=== PATIENT | female | born 1960 | race American Indian/Alaskan Native ===

== ENCOUNTER 2016-11-18 13:50 | Observation (INO) | payer MEDICARE, OTHER ==
[2016-11-18 14:18] VITALS: O2SAT 100; BMI 20.2
--- NOTE | 2016-11-18 15:02 | ED PDOC ---
Arrival/HPI <Lorenzo Lott - Last Filed: 11/18/16 16:46> - General Historian: Patient - History of Present Illness Time/Duration: < week Symptom Onset: Gradual Symptom Course: Unchanged Quality: Burning Severity Level: 4 Activities at Onset: Rest Context: Home <Kateryna Vargas - Last Filed: 11/18/16 20:44> - General Chief Complaint: High Blood Pressure Time Seen by Provider: 11/18/16 14:21 - History of Present Illness Narrative History of Present Illness (Text): 11/18/16 14:58 This is a 56Y deaf F with PMH of HTN, HLD, CKD, anemia, CVA who came to ED for high blood pressure. She was sent in by PMD for SBP of 230s. Daughter is at bedside translating for mother. The daughter reports that her mother ran out of all her medications for the past 2 days. They applied for Medicaid and waiting for acceptance. As of now, her mother and father are living off of a disability check that does not come in until December 01. The daughter also helps her parents when she can. The patient reports she is having epigastric abdominal pain that radiates up and down her sternum and to her back. The pain is worse with food. Patient does take Protonix at home, but ran out of her medication. She denies CP , SOB, n/v/d, numbness/tingling, dysuria or hematuria. Of note, patient had an EGD 05/2016 and a nuclear stress test which was normal. (Kateryna Vargas) Past Medical History - Provider Review Nursing Documentation Reviewed: Yes - Cardiac Hx Hypertension: Yes - Neurological HX Cerebrovascular Accident: Yes (5 yrs ago.. no deficit) - HEENT Hx Deafness: Yes Other/Comment: mute.... also has blurry vision lately - Endocrine/Metabolic Hx Endocrine Disorders: No - Hematological/Oncological Hx Blood Transfusions: Yes Hx Blood Transfusion Reaction: (UNK) - Integumentary Hx Dermatological Disorder: No - Musculoskeletal/Rheumatological Hx Musculoskeletal Disorders: No - Gastrointestinal Hx Gastrointestinal Disorders: No - Genitourinary/Gynecological Hx Genitourinary Disorders: No - Psychiatric Hx Psychophysiologic Disorder: No Hx Substance Use: No - Surgical History Hx Hysterectomy: Yes (after 2nd child was born) - Anesthesia Hx Anesthesia Reactions: No Hx Malignant Hyperthermia: No <Kateryna Vargas - Last Filed: 11/18/16 20:44> Family/Social History - Physician Review Nursing Documentation Reviewed: Yes Family/Social History: Hypertension Smoking Status: Never Smoked Hx Alcohol Use: Yes (social 2-3/year) Hx Substance Use: No <Kateryna Vargas - Last Filed: 11/18/16 20:44> Allergies/Home Meds <Lorenzo Lott - Last Filed: 11/18/16 16:46> <Kateryna Vargas - Last Filed: 11/18/16 20:44> Allergies/Adverse Reactions: Allergies No Known Allergies Allergy (Verified 06/09/16 07:39) Home Medications: Home Meds Medication Instructions Recorded Confirmed Furosemide [Lasix] 40 mg PO DAILY 06/09/16 06/09/16 NIFEdipine ER [Procardia XL] 90 mg PO DAILY 06/09/16 06/09/16 Atorvastatin [Lipitor] 40 mg PO DAILY 11/18/16 11/18/16 Metoprolol Tartrate [Lopressor] 50 mg PO BID 11/18/16 11/18/16 Pantoprazole Sodium [Protonix] 40 mg PO DAILY 11/18/16 11/18/16 Review of Systems - Physician Review All systems were reviewed & negative as marked: Yes - Review of Systems Constitutional: Normal. absent: Fatigue, Fevers Eyes: Normal. absent: Vision Changes ENT: Normal. absent: Hearing Changes Respiratory: Normal. absent: SOB, Cough Cardiovascular: Normal. absent: Chest Pain, Palpitations Gastrointestinal: Abdominal Pain. absent: Diarrhea, Nausea, Vomiting Genitourinary Female: Normal Musculoskeletal: Normal. absent: Arthralgias Skin: Normal Neurological: Normal. absent: Headache, Dizziness Endocrine: Normal Hemo/Lymphatic: Normal Psychiatric: Normal. absent: Anxiety, Depression <Kateryna Vargas - Last Filed: 11/18/16 20:44> Physical Exam <KaylieLorenzo - Last Filed: 11/18/16 16:46> Vital Signs Reviewed: Yes Temperature: Afebrile Blood Pressure: Hypertensive Pulse: Tachycardic Respiratory Rate: Normal Appearance: Positive for: Well-Appearing, Non-Toxic, Comfortable Pain Distress: None Mental Status: Positive for: Alert and Oriented X 3 - Systems Exam Head: Present: Atraumatic, Normocephalic Pupils: Present: PERRL Extroacular Muscles: Present: EOMI Conjunctiva: Present: Normal Mouth: Present: Moist Mucous Membranes Neck: Present: Normal Range of Motion Respiratory/Chest: Present: Clear to Auscultation, Good Air Exchange. No: Respiratory Distress, Accessory Muscle Use Cardiovascular: Present: Regular Rate and Rhythm, Normal S1, S2. No: Murmurs Abdomen: Present: Tenderness (epigastric ), Normal Bowel Sounds. No: Distention , Peritoneal Signs Back: Present: Normal Inspection Upper Extremity: Present: Normal Inspection. No: Cyanosis, Edema Lower Extremity: Present: Normal Inspection. No: Edema Neurological: Present: GCS=15, CN II-XII Intact, Speech Normal Skin: Present: Warm, Dry, Normal Color. No: Rashes Psychiatric: Present: Alert, Oriented x 3, Normal Insight, Normal Concentration <Kateryna Vargas - Last Filed: 11/18/16 20:44> Vital Signs Temp Pulse Resp BP Pulse Ox 11/18/16 19:21 87 22 192/74 H 100 11/18/16 19:08 83 196/124 H 11/18/16 19:04 85 20 196/124 H 100 11/18/16 18:49 79 20 189/98 H 100 11/18/16 16:17 69 254/141 H 11/18/16 15:45 70 20 254/141 H 100 11/18/16 15:07 87 258/145 H 11/18/16 15:06 158/145 H 11/18/16 14:06 98.6 F 97 H 20 192/157 H 100 Medical Decision Making <Lorenzo Lott - Last Filed: 11/18/16 16:46> Re-evaluation Time: 15:59 Reassessment Condition: Unchanged - Lab Interpretations I have reviewed the lab results: Yes Interpretation: No sign. chg./baseline - RAD Interpretation Clinical Nursing Instructor: Radiologist - EKG Interpretation Interpreted by ED Physician: Yes Type: 12 lead EKG Comparison: Com.w/previous EKG <Kateryna Vargas - Last Filed: 11/18/16 20:44> ED Course and Treatment: A 56 year old female with high blood pressure. In agreement with resident note, which includes further HPI details. Patient was seen and evaluated with resident , along with a tattoo designer, came up with plan and treatment together. 11/18/16 16:08 Oral medication, Lopressor and Norvasc, given at patient's dosing schedule. Patients blood pressure continues to be high, currently 254/141. Will need intravenous antihypertensive medication for blood pressure control. Will need observation on tele. Discussed with Dr. Edouard for placement on his service. 11/18/16 16:46 Patient given hydralazine ivp with BP down to 210/127; patient's daughter says that despite scripts besides the lopressor and amlodipine for HTN, they were unable to afford the meds and that is all she takes. At this time, she does c/ o abd, cp, and back pain that are chronic and had a negative stress test 6 months ago. EKG shows chronic strain pattern. Trop is indeterminate but trending down. Will need to r/o dissection; given renal function, will need MRA. (Lorenzo Lott) 11/18/16 15:55 Impression: This is a 56Y deaf F with PMH of HTN, HLD, CKD, anemia, CVA who came to ED for high blood pressure and epigastric abdominal pain x 2 days. She was sent in by PMD for SBP of 230s. Patient reports she ran out of her medication and cannot afford it for past 2 days. She will get a disability check in 2 weeks. DDX: GERD, medication non-compliance Plan: -- CBC, CMP, U/A, Urine culture -- EKG, CXR -- Protonix IV, Lopressor, Norvasc. -- Consult with social science analyst for payment issues -- Reassess Prior Visits: Notes and results from previous visits were reviewed. Progress Note: Patient continues to have abdominal pain. Protonix 40mg IV ordered. Labs noted to be at baseline. Patient noted to have continued HTN. Hydralazine ordered. MRA of chest ordered to rule out dissection. Patient being admitted for high BP. Spoke with Dr. Edouard who will accept the patient into his service. (Kateryna Vargas) - Lab Interpretations Lab Results: 11/18/16 14:49 11/18/16 14:49 Lab Results 11/18/16 14:49: Iron 48, TIBC 282, % Saturation 17 L, 25-OH Vitamin D Total Pending 11/18/16 14:49: Phosphorus 3.7, Ferritin Pending, Vitamin B12 Pending, Folate Pending 11/18/16 14:49: Sodium 138, Potassium 4.3, Chloride 101, Carbon Dioxide 28, Anion Gap 13, BUN 38 H, Creatinine 2.8 H, Est GFR ( Amer) 21, Est GFR ( Non-Af Amer) 17, Random Glucose 86, Calcium 9.2, Total Bilirubin 0.5, AST 28, ALT 26, Alkaline Phosphatase 85, Lactate Dehydrogenase 577, Total Creatine Kinase 76, Troponin I 0.05 D, Total Protein 8.4 H, Albumin 4.2, Globulin 4.2, Albumin/Globulin Ratio 1.0 L 11/18/16 14:49: Urine Color Yellow, Urine Appearance Clear, Urine pH 7.0, Ur Specific [place] 1.010, Urine Protein 100 H, Urine Glucose (UA) Negative, Urine Ketones Negative, Urine Blood Small H, Urine Nitrate Negative, Urine Bilirubin Negative, Urine Urobilinogen 0.2, Ur Leukocyte Esterase Negative, Urine RBC 0 - 2, Urine WBC 0 - 2, Ur Epithelial Cells 1 - 3, Urine Bacteria Few 11/18/16 14:49: WBC 7.2, RBC 3.78, Hgb 10.7 L, Hct 32.5 L, MCV 86.0, MCH 28.3, MCHC 32.9, RDW 13.5, Plt Count 293, MPV 9.7, Gran % 73.1 H, Lymph % (Auto) 19.9 L, [place] % (Auto) 6.1 H, Eos % (Auto) 0.8 L, Baso % (Auto) 0.1, Gran # 5.25, Lymph # 1.4, Donley # 0.4, Eos # 0.1, Baso # 0.01 - RAD Interpretation Narrative RAD Interpretations (Text): 11/18/16 17:32 CXR Portable COMPARISON: 06/09/2016 FINDINGS: LUNGS: The lungs are well inflated and clear. PLEURA: No significant pleural effusion identified, no pneumothorax apparent. CARDIOVASCULAR: There is persistent severe cardiomegaly. OSSEOUS STRUCTURES: No significant abnormalities. VISUALIZED UPPER ABDOMEN: Normal. OTHER FINDINGS: None. IMPRESSION: No active pulmonary disease. Severe cardiomegaly. 11/18/16 20:43 EXAM: MR Chest Without Intravenous Contrast CLINICAL HISTORY: 56 years old, female; Pain; Chest pain; Type not specified; Patient HX: Chest pain. R/O aortic dissection. Bad kidney function. ; Additional info: R/O dissection COMPARISON: TMT - MYOCARDIAL STRESS REST SPECT 06/11/2016 11:14:55 AM FINDINGS: Limitation: Study is partially limited secondary to motion. The proximal pulmonary arteries are not well-seen. Small calcified nodule associated with the right major fissure. Lungs are overall clear. Mediastinum: Unremarkable. Thyroid appears prominent. Lungs: Unremarkable. No consolidation. Calcified nodule right major fissure. Cardiac chambers: The cardiac chambers are moderately enlarged without the presence of pericardial thickening or effusion. Pleural space: Unremarkable. No significant fluid collection. Bones/joints: There is no evidence of abnormal bone marrow signal intensity to suggest contusion or occult fracture. Upper abdomen: Small cyst of the right hepatic lobe.. Vasculature: The aortic contours not optimally delineated, and unable to assess for presence or absence of intimal flaps. Lymph nodes: Unremarkable. No enlarged lymph nodes. IMPRESSION: Unable to assess the presence or absence of dissection. Study is very limited. No aneurysm of the aorta. No acute process in the chest. Incidental findings as described (Kateryna Vargas) Radiology Orders: 11/18/16 14:38 CHEST PORTABLE [RAD] Stat - EKG Interpretation EKG Interpretation (Text): 11/18/16 15:59 HR at 84. QTc mildly prolonged at 467. No change from previous EKG. NSR. R atrial enlargement. LVH (Kateryna Vargas) - Medication Orders Current Medication Orders: Minoxidil (Minoxidil) 5 mg PO HS RAFI Last Admin: 11/18/16 20:11 Dose: 5 mg Discontinued Medications Amlodipine Besylate (Norvasc) 10 mg PO STAT STA Stop: 11/18/16 14:53 Last Admin: 11/18/16 15:06 Dose: 10 mg Hydralazine HCl (Apresoline) 10 mg IVP ONCE STA Stop: 11/18/16 16:11 Last Admin: 11/18/16 16:17 Dose: 10 mg Metoprolol Tartrate (Lopressor) 50 mg PO STAT STA Stop: 11/18/16 14:53 Last Admin: 11/18/16 15:07 Dose: 50 mg Metoprolol Tartrate (Lopressor) 100 mg PO STAT STA Stop: 11/18/16 18:52 Last Admin: 11/18/16 19:08 Dose: 100 mg Pantoprazole Sodium (Protonix Inj) 40 mg IVP STAT STA Stop: 11/18/16 14:54 Last Admin: 11/18/16 15:01 Dose: 40 mg Pantoprazole Sodium (Protonix Inj) 40 mg IVP STAT STA Stop: 11/18/16 15:52 Last Admin: 11/18/16 16:11 Dose: 40 mg - PA / CORRESPONDENCE RENEW CLERK / Resident Statement /DO has reviewed & agrees with the documentation as recorded. MD/DO has examined the patient and agrees with the treatment plan. - Scribe Statement The provider has reviewed the documentation as recorded by the Scribe <Lorenzo Lott - Last Filed: 11/18/16 16:46> <Kateryna Vargas - Last Filed: 11/18/16 20:44> - Scribe Statement Liliana Rubio Provider Scribe Attestation: All medical record entries made by the Scribe were at my direction and personally dictated by me. I have reviewed the chart and agree that the record accurately reflects my personal performance of the history, physical exam, medical decision making, and the department course for this patient. I have also personally directed, reviewed, and agree with the discharge instructions and disposition. (Lorenzo Lott) Disposition/Present on Arrival <Lorenzo Lott - Last Filed: 11/18/16 16:46> - Present on Arrival Any Indicators Present on Arrival: No History of DVT/PE: No History of Uncontrolled Diabetes: No Urinary Catheter: No History of Decub. Ulcer: No History Surgical Site Infection Following: None - Disposition Have Diagnosis and Disposition been Completed?: Yes Disposition Time: 16:16 Patient Plan: Admission, Telemetry <Kateryna Vargas - Last Filed: 11/18/16 20:44> - Disposition Diagnosis: Hypertensive urgency, GERD (gastroesophageal reflux disease) Disposition: HOSPITALIZED Patient Problems: Current Active Problems Problem Status Onset Hypertensive urgency Acute GERD (gastroesophageal reflux disease) Acute Condition: FAIR
[2016-11-18 15:03] LABS: ADD MANUAL DIFF? NO
[2016-11-18 15:08] LABS: URINE BILIRUBIN NEGATIVE (NEGATIVE); URINE BLOOD SMALL (NEGATIVE); URINE GLUCOSE (UA) NEGATIVE (NEGATIVE); URINE KETONE NEGATIVE (NEGATIVE); URINE LEUKOCYTE ESTERASE NEGATIVE Leu/uL (NEGATIVE); URINE PROTEIN 100 mg/dL (<30 mg/dL); URINE UROBILINOGEN 0.2 E.U./dL (<1 E.U./dL)
[2016-11-18 15:09] LABS: URINE COLOR YELLOW (YELLOW)
[2016-11-18 15:10] LABS: URINE APPEARANCE CLEAR (CLEAR)
[2016-11-18 15:11] LABS: BASO # 0.01 K/mm3 (0.0-2.0); BASO % 0.1 % (0.0-3.0); EOS # 0.1 (0.0-0.7); EOS % 0.8 % (1.5-5.0); GRAN # 5.25 (1.4-6.5); GRAN % 73.1 % (50.0-68.0); HEMATOCRIT 32.5 % (36.0-48.0); LYMPH # 1.4 (1.2-3.4); LYMPH % 19.9 % (22.0-35.0); MEAN CORPUSCULAR HEMOGLOBIN 28.3 pg (25.0-35.0); MEAN CORPUSCULAR HGB CONC 32.9 g/dl (31.0-37.0); MEAN PLATELET VOLUME 9.7 fl (7.0-11.0); MONO # 0.4 (0.1-0.6); MONO % 6.1 % (1.0-6.0); PLATELET COUNT 293 10^3/uL (120.0-450.0); RED CELL DISTRIBUTION WIDTH 13.5 % (11.5-14.5); WHITE BLOOD COUNT 7.2 10^3/ul (4.5-11.0)
[2016-11-18 15:18] LABS: BILIRUBIN,TOTAL 0.5 mg/dL (0.2-1.3); CALCIUM 9.2 mg/dL (8.4-10.5); POTASSIUM 4.3 mmol/L (3.6-5.0); TOTAL PROTEIN 8.4 g/dL (5.8-8.3)
[2016-11-18 15:22] LABS: URINE BACTERIA FEW (NEG); URINE RBC 0 - 2 /hpf (0-2); URINE WBC 0 - 2 /hpf (0-6)
[2016-11-18 15:30] LABS: TROPONIN I 0.05 ng/mL
--- NOTE | 2016-11-18 16:33 | RAD ---
HISTORY: chest discomfort COMPARISON: 06/09/2016 FINDINGS: LUNGS: The lungs are well inflated and clear. PLEURA: No significant pleural effusion identified, no pneumothorax apparent. CARDIOVASCULAR: There is persistent severe cardiomegaly. OSSEOUS STRUCTURES: No significant abnormalities. VISUALIZED UPPER ABDOMEN: Normal. OTHER FINDINGS: None. IMPRESSION: No active pulmonary disease. Severe cardiomegaly.
--- NOTE | 2016-11-18 19:04 | CP.PCM.CON ---
History of Present Illness - History of Present Illness History of Present Illness: Initial Nephrology Consultation: Assessment: Chronic Kidney Disease Stage 4 with ? mg proteinuria likely due to HTN severe uncontrolled HTN with urgency Anemia, non compliance to meds due to social issues chronic sys CHF, pulmonary HTN visual impairment, deaf/mute status Plan No acute need for renal replacement therapy at this time. Hypertension control with meds as ordered. continue with norvasc 10 mg/day, ARB home dose and add minoxidil 5 mg/day. Monitor Input/Output, daily weights and renal function with basic metabolic panel Check urine analysis, spot protein/creatinine and albumin/creatinine ratio Check for 25-OH vitamin D, iPTH, phosphorus level and iron indices, serum protein electrophoresis with immunofixation, Dose meds/antibiotics for reduced GFR. Avoid fleets enema/magnesium based laxatives. Avoid nephrotoxins/NSAIDs/ iodinated contrast (unless needed emergently) Further work up for as per primary team Thanks for allowing me to participate in care of your patient. Will follow patient with you. Please call if any Qs Dr Cory Rausch Office: [phone] Chief Complaint; headache, elevated BP HPI: Pt is a 56 y/o with hx of long standing hypertension (decades), CKD stage 4 with echogenic kidneys, visually impaired, deaf and mute presented with complaints of elevated BP with headache for last few days. pt has not been able to afford BP meds and takes for few days/weeks in a month only. Denies chest pain, palpitation, shortness of breath, leg swelling Denies blood or bubbles in urine Denies OTC/herbal meds or NSAIDs ROS: Daughter bedside who helped in sign language interpretation Constitutional Symptoms: Denies fever. No chills. No Recent Weight Changes Eyes: has chronic vision impairment Ears/Nose/Mouth/Throat: Denies Abnormal Taste. No Bad breath or Bad Taste. Cardiovascular: No chest pain. There is no shortness of breath. No palpitations. Pulmonary: No shortness of breath or cough. Gastrointestinal: has mild abdominal pain No nausea. No vomiting. Denies change in bowel habits. Denies Bleeding Genitourinary: No Change in force of strain when urinating. No increase in urinary frequency. No pain while urinating. Denies blood in urine. Neurological: c/o headaches. No dizziness. Denies loss of balance. Denies weakness, denies tingling/numbness Dermatological: No Rash or Bruising or ulcers. Psychiatric: Denies Anxiety. No depression. Denies hallucinations. Rheumatological: No joint pain. Denies Joint swelling Endocrine: Denies over tiredness. Denies Fatigue and Heat/Cold Intolerance. Physical Examination: General Appearance: Comfortable, in no acute respiratory distress, co-operative . Vitals reviewed and noted as below. BP 189/98 when seen Head; Atraumatic, normocephalic ENT: no ulcers no thrush. Tongue is midline. Oropharynx: no rash or ulcers. EYES; Eye muscles and extraocular movement intact. Sclera is anicteric. Neck; supple no lymphadenopathy, no thyromegaly or bruit Lungs: Normal respiratory rate/effort. Breath sounds bilateral equal and clear Heart: Normal rate. s1s2 normal. No rub or gallop. Extremities: no edema. No varicose veins Neurological: Patient is alert, awake and oriented to person, place and time. No focal deficit. Strength bilateral appropriate and equal. she is deaf and mute. Skin: Warm and dry. Normal turgor. No rash. Palpitation: Normal elasticity for age Abdomen: Abdomen is soft. Bowel sounds +. There is no abdominal tenderness, no guarding/rigidity or organomegaly Psych: lack insight and has normal affect/mood MSK: no joint tenderness or swelling. Digits and nails normal, no deformity : kidney or bladder not palpable Labs/imaging reviewed. Past medical history, past surgical history, family history, social history, allergy reviewed and noted as below previusly ANCA neg complements normal, Hep c neg and exposed to hep B but sAg and sAb neg echogenic kidneys on sonogram echo: EF 45% with conc LVH, pulm HTN Past Patient History - Past Social History Smoking Status: Never Smoked - CARDIAC Hx Hypertension: Yes - NEUROLOGICAL HX Cerebrovascular Accident: Yes (5 yrs ago.. no deficit) - HEENT Hx Deafness: Yes Other/Comment: mute.... also has blurry vision lately - ENDOCRINE/METABOLIC Hx Endocrine Disorders: No - HEMATOLOGICAL/ONCOLOGICAL Hx Blood Transfusions: Yes Hx Blood Transfusion Reaction: (UNK) - INTEGUMENTARY Hx Dermatological Problems: No - MUSCULOSKELETAL/RHEUMATOLOGICAL Hx Musculoskeletal Disorders: No - GASTROINTESTINAL Hx Gastrointestinal Disorders: No - GENITOURINARY/GYNECOLOGICAL Hx Genitourinary Disorders: No - PSYCHIATRIC Hx Psychophysiologic Disorder: No Hx Substance Use: No - SURGICAL HISTORY Hx Hysterectomy: Yes (after 2nd child was born) - ANESTHESIA Hx Anesthesia Reactions: No Hx Malignant Hyperthermia: No Meds Allergies/Adverse Reactions: Allergies Allergy/AdvReac Type Severity Reaction Status Date / Time No Known Allergies Allergy Verified 06/09/16 07:39 Results - Vital Signs Recent Vital Signs: Last Vital Signs Temp 98.6 F 11/18/16 14:06 Pulse 69 11/18/16 16:17 Resp 20 11/18/16 15:45 BP 254/141 H 11/18/16 16:17 Pulse Ox 100 11/18/16 15:45 - Labs Result Diagrams: 11/18/16 14:49 11/18/16 14:49
[2016-11-18 19:36] LABS: PHOSPHOROUS 3.7 mg/dL (2.5-4.5)
[2016-11-18 19:45] LABS: IRON 48 ug/dL (45-180)
--- NOTE | 2016-11-18 22:08 | CARD ---
APPROVED REPORT EKG Measurement Heart [id number] <Conclusion> Normal sinus rhythm Right atrial enlargement Voltage criteria for left ventricular hypertrophy ST & T wave abnormality, consider inferolateral ischemia Prolonged QT Abnormal ECG
--- NOTE | 2016-11-19 08:00 | MRI ---
PROCEDURE: HISTORY: r/o dissection COMPARISON: TECHNIQUE: Noncontrast FINDINGS: The heart is enlarged. The pulmonary artery trunk appears dilated. There is no aortic aneurysm. Cannot rule out aortic dissection without benefit of intravenous contrast. The lungs are grossly clear. There is no effusion. No gross adenopathy is observed. There is no marrow signal abnormality. Mild thyroid enlargement is observed. The upper abdomen is unremarkable. IMPRESSION: No evidence of aortic aneurysm the dissection is not definitively excluded. Cardiomegaly. Dilated pulmonary artery trunk.
--- NOTE | 2016-11-19 09:06 | HP ---
I met her this morning with the gas engine performance engineer. She is deaf and possibly blind. She is a 56-year-old deaf female who comes in with excruciating high blood pressure and abdominal pain. She has a past medical history of hypertension, hyperlipidemia, chronic kidney disease, anemia, CVA with weakness in her legs. She had a blood pressure in the 230s. Her daughter brought her in and now there is a gas engine performance engineer with me in her room. They ran out of the medications for the past 2 days. They are awaiting acceptance from Medicaid, waiting for a disability check. She has abdominal pain, hypertension and chronic renal failure; CVA 5 years ago , no deficit; hypertension, occasional blurred vision, poor vision and deafness. She needs a gas engine performance engineer. She had transfusions in the past, hysterectomy after her second child was born. FAMILY HISTORY: Hypertension in the family. SOCIAL HISTORY: She never smoked. She occasionally drinks, 2-3 times a year. No substance abuse. ALLERGIES: No known drug allergies. MEDICATIONS: She is on Lasix, Procardia, Lipitor, Lopressor, Protonix. REVIEW OF SYSTEMS: No acute headaches or vision changes or hearing changes. No chest pain or palpitations. There is abdominal pain, not sure why. There is some leg pain. Skin: No issues. No headache, no dizziness. She is not anxious. No depression. She is smiling and comfortable. PHYSICAL EXAMINATION: VITAL SIGNS: She has a 192/74 blood pressure (it was as high as 254/141 when she came in), 87 pulse, 22 respiratory rate, 100% O2 sat. HEENT: Head is atraumatic, normocephalic. Extraocular muscles are intact. Pupils equal, reactive to light. Throat moist. NECK: Supple. HEART: Regular rate. Normal S1, S2. LUNGS: Decreased breath sounds but clear to auscultation. ABDOMEN: Is for the most part soft. There is a little bit of tenderness, but no guarding or rebound, no CVA tenderness. EXTREMITIES: Have no edema. NEUROLOGIC: GCS 15. Cranial nerves II-XII grossly intact. She is deaf. SKIN: Warm and dry. PSYCHIATRIC: She is alert and talking to the gas engine performance engineer in sign language. LYMPHATICS: Thyroid midline. No palpable appreciable lymphadenopathy. LABORATORY DATA: She had multiple tests. She had a 7.2 white count, 10.7 hemoglobin, 32.5 hematocrit with 293 platelets. Sodium 138, potassium 4.3, BUN , creatinine 2.8 (that could be her baseline, nobody knows), GFR is 17, sugar is 86, calcium is 9.2. Iron is 48, total iron binding capacity is 282. Total bili is 0.5, AST is 28, ALT is 26, alk phos 85. Lactate dehydrogenase is 577, troponin-I is 0.05. Total protein is 8.4, albumin is 4.2. Urine is clean. She had some tests done. Consult with renal. They ordered a renal ultrasound. Chest MRA showed no evidence of aortic aneurysm but dissection is not definitively excluded, dilated pulmonary trunk. Chest x-ray showed no active disease, severe cardiomegaly. So, severe cardiomegaly. There are consults for GI, cardio, renal. She is on hydralazine and Protonix. I am hoping that she can be discharged later today, if the workup is okay, and sent back to her outpatient physician. This patient had accelerated hypertension which is improved, acute renal failure which I think is chronic, abdominal pain. I am not sure what to make of that. Will see what GI has to say. Kaden Edouard DO cc: [id number] TT: 11/19/2016 09:05:31 gabriel SUT[place]LAND
--- NOTE | 2016-11-19 09:50 | CP.PCM.PN ---
Subjective - Date & Time of Evaluation Date of Evaluation: 11/19/16 Time of Evaluation: 09:46 - Subjective Subjective: Follow up Nephrology Consultation: Assessment: Chronic Kidney Disease Stage 4 with ? mg proteinuria likely due to HTN severe uncontrolled HTN with urgency Anemia, non compliance to meds due to social issues chronic sys CHF, pulmonary HTN visual impairment, deaf/mute status Plan No acute need for renal replacement therapy at this time. Hypertension control with meds as ordered. continue with norvasc 10 mg/day, add losartan 50 mg/day and added minoxidil 5 mg/day. Monitor Input/Output, daily weights and renal function with basic metabolic panel ordered for urine analysis, spot protein/creatinine and albumin/creatinine ratio ordered for 25-OH vitamin D, iPTH, phosphorus level and iron indices, serum protein electrophoresis with immunofixation, Hep B serology. Secondary HTN work up with renin/jasmin/metanephrine and renal artery dopplers Dose meds/antibiotics for reduced GFR. Avoid fleets enema/magnesium based laxatives. Avoid nephrotoxins/NSAIDs/ iodinated contrast (unless needed emergently) Further work up for as per primary team Thanks for allowing me to participate in care of your patient. Will follow patient with you. Please call if any Qs Dr Cory Rausch Office: [phone] ROS: Interpretor bedside who helped in sign language interpretation Constitutional Symptoms: Denies fever. No chills. No Recent Weight Changes Eyes: has chronic vision impairment Ears/Nose/Mouth/Throat: Denies Abnormal Taste. No Bad breath or Bad Taste. Cardiovascular: No chest pain. There is no shortness of breath. No palpitations. Pulmonary: No shortness of breath or cough. Gastrointestinal: has mild abdominal pain/cramps No nausea. No vomiting. Genitourinary: No Change in force of strain when urinating. No increase in urinary frequency. No pain while urinating. Denies blood in urine. Neurological: improved headaches. No dizziness. Physical Examination: General Appearance: Comfortable, in no acute respiratory distress, co-operative . Vitals reviewed and noted as below. Lungs: Normal respiratory rate/effort. Breath sounds bilateral equal and clear Heart: Normal rate. s1s2 normal. No rub or gallop. Extremities: no edema. No varicose veins Neurological: Patient is alert, awake and oriented to person, place and time. No focal deficit. Strength bilateral appropriate and equal. she is deaf and mute. Skin: Warm and dry. Normal turgor. No rash. Palpitation: Normal elasticity for age Abdomen: Abdomen is soft. Bowel sounds +. There is no abdominal tenderness, no guarding/rigidity or organomegaly : kidney or bladder not palpable Labs/imaging reviewed. Past medical history, past surgical history, family history, social history, allergy reviewed previously ANCA neg complements normal, Hep c neg and exposed to hep B but sAg and sAb neg echogenic kidneys on sonogram echo: EF 45% with conc LVH, pulm HTN Objective - Vital Signs/Intake and Output Vital Signs (last 24 hours): Temp Pulse Resp BP Pulse Ox 98.2 F 84 18 125/71 100 11/19/16 06:00 11/19/16 06:00 11/19/16 06:00 11/19/16 06:00 11/19/16 06:00 Intake and Output: 11/19/16 11/19/16 06:59 18:59 Intake Total 120 Balance 120 - Medications Medications: Current Medications Amlodipine Besylate (Norvasc) 10 mg PO DAILY [facility] Pantoprazole Sodium (Protonix 40mg Ivpb) 40 mg in 100 mls @ 200 mls/hr IVPB 0600 [facility] Losartan Potassium (Cozaar) 50 mg PO DAILY [facility] Minoxidil (Minoxidil) 5 mg PO [facility] Last Admin: 11/18/16 23:54 Dose: 5 mg
[2016-11-19 10:38] LABS: ADD MANUAL DIFF? NO
[2016-11-19 10:44] LABS: BASO # 0.02 K/mm3 (0.0-2.0); BASO % 0.3 % (0.0-3.0); EOS # 0.1 (0.0-0.7); EOS % 0.8 % (1.5-5.0); GRAN # 3.91 (1.4-6.5); GRAN % 65.6 % (50.0-68.0); LYMPH # 1.6 (1.2-3.4); LYMPH % 27.3 % (22.0-35.0); MEAN CELL VOLUME 86.4 fL (80.0-105.0); MEAN CORPUSCULAR HGB CONC 32.4 g/dl (31.0-37.0); MEAN PLATELET VOLUME 9.5 fl (7.0-11.0); MONO # 0.4 (0.1-0.6); PLATELET COUNT 365 10^3/uL (120.0-450.0); RED CELL DISTRIBUTION WIDTH 13.7 % (11.5-14.5)
[2016-11-19 10:55] LABS: POTASSIUM 4.3 mmol/L (3.6-5.0)
[2016-11-19 12:49] VITALS: BP 110/68; RESP 20; TEMP 98.5
--- NOTE | 2016-11-19 12:52 | CP.PCM.CON ---
<Kyaw Cosme - Last Filed: 11/19/16 12:52> History of Present Illness - History of Present Illness History of Present Illness: PGY4 GI Fellow Consult Note Patient is a 56yo female with PMHx significant for CKD stage 4, HTN, CVA, anemia , CHF, pulmonary HTN, visually impaired, deaf who presented to the hospital with abdominal pain. A print designer was present during history/ examination as well as the patient's daughter and . The patient has suffered with constant, epigastric, burning pain for approximately 2 years. She was recently seen and evaluated by our service in May 2016 where she underwent EGD revealing H pylori gastrits. She has been on Protonix 40mg PO QAMAC though compliance has been tricky due to social issues related to obtaining medications. Moreover, she was never treated with triple therapy for H pylori infection. She admits to occasional nausea though denies any episodes of vomiting, has not had any weight loss and has not noted any melena/ hematochezia. Also denies any chronic NSAID use or worsening of symptoms with eating. PMHx: See HPI PSHx: C/S x2 FHx: Discussed with patient and she denies any significant family history Social: Denies any tobacco, EtOH or illicit drug use Endo: EGD as described in HPI Review of Systems - Constitutional Constitutional: absent: Anorexia, Chills, Fever, Weight Gain, Weight Loss - EENT Eyes: absent: Change in Vision Nose/Mouth/Throat: absent: Sore Throat - Cardiovascular Cardiovascular: absent: Chest Pain, Dyspnea on Exertion, Edema - Respiratory Respiratory: absent: Cough, Dyspnea, Excessive Mucous Production - Gastrointestinal Gastrointestinal: Abdominal Pain, Bloating, Dyspepsia, Nausea. absent: Belching , Constipation, Cramping, Diarrhea, Dysphagia, Early Satiety, Heartburn, Hematemesis, Hematochezia, Loose Stools, Melena, Temesmus, Vomiting - Genitourinary Genitourinary: absent: Dysuria, Urinary Frequency, Urinary Urgency - Musculoskeletal Musculoskeletal: absent: Back Pain, Neck Pain - Integumentary Integumentary: absent: New Lesions, Rash - Neurological Neurological: absent: Dizziness, Numbness, Focal Weakness - Psychiatric Psychiatric: absent: Anxiety, Depression - Endocrine Endocrine: absent: Polydipsia, Polyphagia, Polyuria - Hematologic/Lymphatic Hematologic: absent: Easy Bleeding, Easy Bruising, Lymphadenopathy Past Patient History - Past Social History Smoking Status: Never Smoked - CARDIAC Hx Hypertension: Yes - NEUROLOGICAL HX Cerebrovascular Accident: Yes (5 yrs ago.. no deficit) - HEENT Hx Deafness: Yes Other/Comment: mute.... also has blurry vision lately - ENDOCRINE/METABOLIC Hx Endocrine Disorders: No - HEMATOLOGICAL/ONCOLOGICAL Hx Blood Transfusions: Yes Hx Blood Transfusion Reaction: (UNK) - INTEGUMENTARY Hx Dermatological Problems: No - MUSCULOSKELETAL/RHEUMATOLOGICAL Hx Musculoskeletal Disorders: No - GASTROINTESTINAL Hx Gastrointestinal Disorders: No - GENITOURINARY/GYNECOLOGICAL Hx Genitourinary Disorders: No - PSYCHIATRIC Hx Psychophysiologic Disorder: No Hx Substance Use: No - SURGICAL HISTORY Hx Hysterectomy: Yes (after 2nd child was born) - ANESTHESIA Hx Anesthesia Reactions: No Hx Malignant Hyperthermia: No Meds Home Medications: Home Medication List Medication Instructions Recorded Confirmed Type Lansoprazole/Amoxiciln/Clarith 1 kit PO BID #1 kit 11/19/16 Rx [Prevpac 500 mg-500 mg-30 mg] Allergies/Adverse Reactions: Allergies Allergy/AdvReac Type Severity Reaction Status Date / Time No Known Allergies Allergy Verified 06/09/16 07:39 - Medications Medications: Current Medications Amlodipine Besylate (Norvasc) 10 mg PO DAILY [facility] Last Admin: 11/19/16 10:27 Dose: 10 mg Pantoprazole Sodium (Protonix 40mg Ivpb) 40 mg in 100 mls @ 200 mls/hr IVPB 0600 [facility] Losartan Potassium (Cozaar) 50 mg PO DAILY [facility] Last Admin: 11/19/16 10:27 Dose: 50 mg Minoxidil (Minoxidil) 5 mg PO HS [facility] Last Admin: 11/18/16 23:54 Dose: 5 mg Physical Exam - Constitutional Appears: Non-toxic, No Acute Distress Additional comments: deaf - Eye Exam Additional comments: severe visual impairment - ENT Exam ENT Exam: Mucous Membranes Moist - Respiratory Exam Respiratory Exam: Clear to Auscultation Bilateral. absent: Rales, Rhonchi, Wheezes - Cardiovascular Exam Cardiovascular Exam: RRR, +S1, +S2 - GI/Abdominal Exam GI & Abdominal Exam: Normal Bowel Sounds, Soft. absent: Distended, Firm, Guarding, Organomegaly, Rigid, Tenderness - Extremities Exam Extremities exam: Positive for: normal inspection. Negative for: pedal edema - Neurological Exam Neurological exam: Alert, Oriented x3 - Psychiatric Exam Psychiatric exam: Normal Affect, Normal Mood - Skin Skin Exam: Dry, Warm Results - Vital Signs Recent Vital Signs: Last Vital Signs Temp 98.5 F 11/19/16 12:00 Pulse 98 H 11/19/16 12:00 Resp 20 11/19/16 12:00 BP 110/68 11/19/16 12:00 Pulse Ox 100 11/19/16 06:00 - Labs Result Diagrams: 11/19/16 10:20 11/19/16 10:20 Labs: Laboratory Results - last 24 hr 11/19/16 11/19/16 10:20 10:20 WBC 6.0 RBC 4.28 Hgb 12.0 Hct 37.0 MCV 86.4 MCH 28.0 MCHC 32.4 RDW 13.7 Plt Count 365 MPV 9.5 Gran % 65.6 Lymph % (Auto) 27.3 Roberts % (Auto) 6.0 Eos % (Auto) 0.8 L Baso % (Auto) 0.3 Gran # 3.91 Lymph # 1.6 Roberts # 0.4 Eos # 0.1 Baso # 0.02 Sodium 141 Potassium 4.3 Chloride 102 Carbon Dioxide 29 Anion Gap 14 BUN 43 H Creatinine 3.2 H Est GFR ( Amer) 18 Est GFR (Non-Af Amer) 15 Random Glucose 93 Calcium 10.0 Hep Bs Antigen Cancelled Assessment & Plan - Assessment and Plan (Free Text) Assessment: Patient is a 56yo female with PMHx significant for CKD stage 4, HTN, CVA, anemia , CHF, pulmonary HTN, visually impaired, deaf who presented to the hospital with abdominal pain -Abdominal pain -H pylori infection/gastritis -CKD stage 4 -HTN Plan: -Recommend initiation of triple therapy for H pylori eradication -Currently on PPI therapy with protonix 40mg PO QAMAC, encourage compliance with regimen -No plan for repeat endoscopic evaluation given recent exam in May 2016 -Diet as tolerated -Recommend outpatient follow up and elective screening colonoscopy -OK to D/C from GI standpoint <Lyndsey Manzanares - Last Filed: 11/19/16 13:45> Meds - Medications Medications: Current Medications Amlodipine Besylate (Norvasc) 10 mg PO DAILY [facility] Last Admin: 11/19/16 10:27 Dose: 10 mg Pantoprazole Sodium (Protonix 40mg Ivpb) 40 mg in 100 mls @ 200 mls/hr IVPB 0600 [facility] Losartan Potassium (Cozaar) 50 mg PO DAILY [facility] Last Admin: 11/19/16 10:27 Dose: 50 mg Minoxidil (Minoxidil) 5 mg PO HS [facility] Last Admin: 11/18/16 23:54 Dose: 5 mg Results - Vital Signs Recent Vital Signs: Last Vital Signs Temp 98.5 F 11/19/16 12:00 Pulse 98 H 11/19/16 12:00 Resp 20 11/19/16 12:00 BP 110/68 11/19/16 12:00 Pulse Ox 100 11/19/16 06:00 - Labs Result Diagrams: 11/19/16 10:20 11/19/16 10:20 Labs: Laboratory Results - last 24 hr 11/19/16 11/19/16 10:20 10:20 WBC 6.0 RBC 4.28 Hgb 12.0 Hct 37.0 MCV 86.4 MCH 28.0 MCHC 32.4 RDW 13.7 Plt Count 365 MPV 9.5 Gran % 65.6 Lymph % (Auto) 27.3 Roberts % (Auto) 6.0 Eos % (Auto) 0.8 L Baso % (Auto) 0.3 Gran # 3.91 Lymph # 1.6 Roberts # 0.4 Eos # 0.1 Baso # 0.02 Sodium 141 Potassium 4.3 Chloride 102 Carbon Dioxide 29 Anion Gap 14 BUN 43 H Creatinine 3.2 H Est GFR ( Amer) 18 Est GFR (Non-Af Amer) 15 Random Glucose 93 Calcium 10.0 Hep Bs Antigen Cancelled Attending/Attestation - Attestation I have personally seen and examined this patient.: Yes I have fully participated in the care of the patient.: Yes I have reviewed all pertinent clinical information: Yes Notes (Text): Patient seen and examined with GI fellow. Agree with his note as documented above with the following additions/exceptions. This is a 56 YOF with h/o CKD, HTN, anemia, visually/auditory impairment who presents with hypertension and chronic abdominal pain. She has been suffering from chronic abdominal pain/ dyspepsia for the past 2 years intermittently. EGD 05/2016 showed H pylori gastritis. She was lost to follow up due to insurance reasons. She has not been treated for H pylori. No alarm features at present. She will need elective colonoscopy. Will treat H pylori with prevpac after discussion with SW /pharmacy to see if covered by insurance. If her pain is controlled and she tolerates PO, further management can be done on an outpatient basis. Discussed with Dr. Edouard. Please call with any questions. 11/19/16 13:41
[2016-11-19 13:03] LABS: VITAMIN D 25 OH TOTAL < 12.8 NG/ML (30.0-100.0)
[2016-11-19 13:56] LABS: FOLATE 9.4 ng/mL
[2016-11-19 14:26] VITALS: PULSE 96
--- NOTE | 2016-11-19 19:46 | US ---
PROCEDURE: Bilateral renal artery duplex ultrasound. CLINICAL HISTORY: Renal artery stenosis. Uncontrolled hypertension. Evaluate for renovascular hypertension. PHYSICIAN(S): Serafin Sotomayor M.D. TECHNIQUE: Duplex sonography with color-flow Doppler was used to evaluate the visualized segments of the main renal arteries. The patient was evaluated in a fasting state. Imaging in a supine and decubitus position was performed. Limited evaluation of the arcuate waveforms and resistive indices were performed. FINDINGS: The overall quality of the study is adequate. The renal parenchyma is echogenic. The right kidney measures 8.2cm in length and the left kidney measures 8.6cm in length. No solid renal masses, abnormal calcifications, or hydronephrosis is seen. The main right renal artery is fairly well visualized from the aorta to the hilum. The peak systolic velocity in the right main renal artery is 138 cm/sec. This is consistent with a 0 to 49% stenosis in the main right renal artery. The arcuate waveforms are normal. The resistive index is elevated. The main left renal artery is somewhat tortuous.. The peak systolic velocity in the main left renal artery is 108cm/sec. This corresponds to a 0 to 49% stenosis in the main left renal artery. The arcuate waveforms and resistive indices are elevated IMPRESSION: 1. The main renal arteries are fairly well visualized. 2. No sonographically significant stenosis is identified. 3. The renal parenchyma is somewhat echogenic. No evidence of hydronephrosis or solid renal mass is seen.
[2016-11-20] MEDS ORDERED: Pantoprazole 40mg/100ml IVPB 40 MG/100 ML BAG IVPB SCH (06:00)
[2016-11-20 11:43] LABS: BETA 1 GLOBULIN 0.4 g/dL (0.4-0.6); BETA 2 GLOBULIN 0.5 g/dL (0.2-0.5); GAMMA GLOBULIN 1.8 g/dL (0.8-1.7)
[2016-11-20 12:04] LABS: HB E AG Nonreactive (Nonreactive)
[2016-11-20 22:52] LABS: CALCIUM 9.5 mg/dL (8.6-10.4)
[2016-11-23 12:06] LABS: METANEPHRINES <25 pg/mL (<=57); TOTAL METANEPHRINES 81 pg/mL (<=205)
[2016-11-25 23:35] LABS: ALDO/PRA RATIO 8.2 Ratio (0.9-28.9)
--- NOTE | 2016-12-04 12:02 | DS ---
She came in. She is deaf and blind. She had high blood pressure. She had consults with GI, cardio and renal. She was put back on her hydralazine and Protonix. She did well. After she was seen by [facility] and the improvement of the renal failure, she was able to be discharged. She will fol low up with her primary care doctor. Continue the same medications. Take the medications. She was discharged. Kaden Edouard DO cc: [id number] TT: 12/04/2016 12:02:03 mn
== END 2016-11-19 18:35 | disposition home or self-care (01) ==
LOC: ED 13:50 → ERH 16:14 → 2RSO 22:22
PROVIDERS: ADMIT Family Medicine; ATTEND Family Medicine
DX: I16.0 Hypertensive urgency (principal); I13.0 Hypertensive heart and chronic kidney disease with heart failure and stage 1 through stage 4 chronic kidney disease, or unspecified chronic kidney disease; N18.4 Chronic kidney disease, stage 4 (severe); I50.22 Chronic systolic (congestive) heart failure; I27.2 Other secondary pulmonary hypertension; K21.9 Gastro-esophageal reflux disease without esophagitis; E78.5 Hyperlipidemia, unspecified; D64.9 Anemia, unspecified; H91.3 Deaf nonspeaking, not elsewhere classified; R80.9 Proteinuria, unspecified; K29.70 Gastritis, unspecified, without bleeding; B96.81 Helicobacter pylori [H. pylori] as the cause of diseases classified elsewhere; H54.7 Unspecified visual loss; G89.29 Other chronic pain; Z91.14 Patient's other noncompliance with medication regimen; Z86.73 Personal history of transient ischemic attack (TIA), and cerebral infarction without residual deficits; Z90.710 Acquired absence of both cervix and uterus; Z82.49 Family history of ischemic heart disease and other diseases of the circulatory system
CPT/HCPCS: 36415; 71010; 80048; 80053; 81001; 82088; 82306; 82550; 82607; 82728; 82746; 83540; 83550; 83615; 83835; 84100; 84155; 84165; 84244; 84484; 85025; 86334; 86705; 86706; 87086; 87340; 87350; 93005; 93975; 96374; 96375; 96376; 99285; C8910; C9113; G0378; J0360

== ENCOUNTER 2017-03-22 16:46 | Observation (INO) | payer MEDICARE, OTHER ==
[2017-03-22 16:50] VITALS: BMI 21.9
[2017-03-22] MEDS ORDERED: Labetalol 5 mg/ml Inj 20ML IV STA (17:40)
--- NOTE | 2017-03-22 17:42 | ED PDOC ---
Arrival/HPI - General Chief Complaint: High Blood Pressure Time Seen by Provider: 03/22/17 17:33 Historian: Patient, Spouse, [employer] Operator (Sign language interpreters, #[id number] and # [id number]) - History of Present Illness Narrative History of Present Illness (Text): 03/22/17 17:33 A 56 year old female, whose past medical history includes hearing impaired, hypertension, hyperlipidemia and CKD, sent into the emergency department from [facility] for high blood pressure. History obtained through sign language interpreters, Jose #[id number] and Geri #[id number]. , who is also hearing impaired, reports patient had a blood pressure of 225 and was immediately sent here for further evaluation. He states patient experiences worsening blurry vision when her blood pressure increases and notes she has not been communicating properly. Patient complains of dizziness, chest discomfort, shortness of breath, abdominal pain and back pain. Patient denies any fever, headache or any other complaints. reports patient as been under some stress and not feeling like herself over the past few days. HPI and ROS limited , showroom salesperson noted difficulty communicating with patient and . Time/Duration: Prior to Arrival Past Medical History - Provider Review Nursing Documentation Reviewed: Yes - Infectious Disease Hx of Infectious Diseases: None - Cardiac Hx Hypertension: Yes - Neurological HX Cerebrovascular Accident: Yes (5 yrs ago.. no deficit) - HEENT Hx Deafness: Yes Other/Comment: mute.... also has blurry vision lately - Endocrine/Metabolic Hx Endocrine Disorders: No - Hematological/Oncological Hx Blood Transfusions: Yes Hx Blood Transfusion Reaction: (UNK) - Integumentary Hx Dermatological Disorder: No - Musculoskeletal/Rheumatological Hx Musculoskeletal Disorders: No - Gastrointestinal Other/Comment: CKD - Genitourinary/Gynecological Hx Genitourinary Disorders: No - Psychiatric Hx Psychophysiologic Disorder: No Hx Substance Use: No - Surgical History Hx Hysterectomy: Yes (after 2nd child was born) - Anesthesia Hx Anesthesia Reactions: No Hx Malignant Hyperthermia: No Family/Social History - Physician Review Nursing Documentation Reviewed: Yes Family/Social History: No Known Family HX Smoking Status: Never Smoked Hx Alcohol Use: Yes (social 2-3/year) Hx Substance Use: No Allergies/Home Meds Allergies/Adverse Reactions: Allergies No Known Allergies Allergy (Verified 06/09/16 07:39) Home Medications: Home Meds Medication Instructions Recorded Confirmed Pantoprazole Sodium [Protonix] 40 mg PO DAILY 11/18/16 03/22/17 Aspirin [Ecotrin] 1 tab PO DAILY 03/22/17 03/22/17 Metoprolol Succinate [Toprol XL] 1 tab PO DAILY 03/22/17 03/22/17 Minoxidil [Loniten] 1 tab PO DAILY 03/22/17 03/22/17 Review of Systems - Review of Systems Systems not reviewed;Unavailable: Language Barrier (Patient is hearing impaired) Constitutional: absent: Fevers Eyes: Vision Changes Respiratory: SOB Cardiovascular: Chest Pain Gastrointestinal: Abdominal Pain Musculoskeletal: Back Pain Neurological: Dizziness. absent: Headache Physical Exam Vital Signs Reviewed: Yes Vital Signs Temp Pulse Resp BP Pulse Ox 03/22/17 19:25 83 147/83 03/22/17 18:52 89 18 143/83 99 03/22/17 18:00 83 18 147/94 H 98 03/22/17 16:51 98.2 F 87 18 181/84 H 97 Temperature: Afebrile Blood Pressure: Hypertensive Pulse: Regular Respiratory Rate: Normal - Systems Exam Head: Present: Atraumatic, Normocephalic Pupils: Present: PERRL Extroacular Muscles: Present: EOMI Conjunctiva: Present: Normal Mouth: Present: Moist Mucous Membranes Neck: Present: Normal Range of Motion Respiratory/Chest: Present: Clear to Auscultation, Good Air Exchange. No: Respiratory Distress, Accessory Muscle Use Cardiovascular: Present: Regular Rate and Rhythm, Normal S1, S2. No: Murmurs Abdomen: Present: Normal Bowel Sounds. No: Tenderness, Distention, Peritoneal Signs Back: Present: Normal Inspection Upper Extremity: Present: Normal Inspection, NORMAL PULSES. No: Cyanosis, Edema Lower Extremity: Present: Normal Inspection, NORMAL PULSES. No: Edema, CALF TENDERNESS Skin: Present: Warm, Dry, Normal Color. No: Rashes Medical Decision Making ED Course and Treatment: 03/22/17 17:33 Impression: A 56 year old female who is hearing impaired sent for high blood pressure. Patient complains of dizziness, chest discomfort, shortness of breath, abdominal pain and back pain. Plan: -- Chest xray -- EKG -- Labs -- Labetalol -- Reassess and disposition Prior Visits: Notes and results from previous visits were reviewed. Patient had an MRI done in October 2016, which showed no sign of an aneurysm. Progress Notes: 03/22/17 19:41 chest xray shows cardiomegaly increased from prior but no CHF, no respiratory distress. pts visual complaints are chronic, pt shows no signs of abdominal pain at this time, doubt AAA, more consistent with gastritis. chronic reanl insufficiency Re-evaluation Time: 19:06 Reassessment Condition: Re-examined, Improved - Lab Interpretations Narrative Lab Interpretation (Text): 03/22/17 19:08 pt with chronic ckd, anemia, reviewed MRA of chest which was negative for Aortic dissection, pt does has have a hx of gastritis will give GI cocktail. BP is not much improved without intervention. we have attempted in person sign language interpreters without success. trop neg. hx of multiple visits for the same in the past. 03/22/17 19:54 a video sign language interpretation was done. a tactile sign language interprerater was attempted, but was not available immediately. the pt felt much improved and elected to leave and will followup with PMD. Lab Results: 03/22/17 18:05 03/22/17 18:05 Lab Results 03/22/17 18:05: Sodium 134, Potassium 4.8, Chloride 102, Carbon Dioxide 24, Anion Gap 13, BUN 54 H, Creatinine 3.1 H, Est GFR ( Amer) 19, Est GFR ( Non-Af Amer) 15, Random Glucose 98, Calcium 8.6, Total Bilirubin 0.4, AST 35, ALT 40, Alkaline Phosphatase 79, Lactate Dehydrogenase 745 H, Total Creatine Kinase 83, Troponin I 0.05, Total Protein 6.5, Albumin 3.5, Globulin 3.0, Albumin/Globulin Ratio 1.2 03/22/17 18:05: APTT 25.6 03/22/17 18:05: WBC 5.8, RBC 3.83, Hgb 8.8 L, Hct 28.3 L, MCV 73.9 L, MCH 23.0 L , MCHC 31.1, RDW 15.0 H, Plt Count 275, MPV 8.2, Gran % 77.7 H, Lymph % (Auto) 16.0 L, [place] % (Auto) 5.8, Eos % (Auto) 0.2 L, Baso % (Auto) 0.3, Gran # 4.52, Lymph # 0.9 L, [place] # 0.3, Eos # 0.0, Baso # 0.02 I have reviewed the lab results: Yes Interpretation: No sign. chg./baseline - RAD Interpretation Narrative RAD Interpretations (Text): 03/22/17 19:58 ekg compared to 11/18/16 no significant changes. Radiology Orders: 03/22/17 17:39 X-RAY [CHEST PORTABLE] [RAD] Stat - EKG Interpretation EKG Interpretation (Text): 03/22/17 19:51 EKg NSR 84 bpm LVH, Twave inv. V6 Avl which are old. no ST depression Interpreted by ED Physician: Yes Type: 12 lead EKG Comparison: Similar to previous EKG - Medication Orders Current Medication Orders: Discontinued Medications Al Hydrox/Mg Hydrox/Simethicone (Maalox Plus 30 Ml) 30 ml PO STAT STA Stop: 03/22/17 19:02 Last Admin: 03/22/17 19:24 Dose: 30 ml Belladonna/Phenobarbital ( Elixir) 5 ml PO STAT STA Stop: 03/22/17 19:01 Last Admin: 03/22/17 19:23 Dose: 5 ml Labetalol HCl (Trandate) 20 mg IV STAT STA Stop: 03/22/17 17:41 Last Admin: 03/22/17 19:25 Dose: Not Given Non-Admin Reason: BP Parameters Not Met MAR Pulse and Blood Pressure Document 03/22/17 19:25 EQ (Rec: 03/22/17 19:26 EQ [id number]) Pulse Pulse Rate (60-90 beats/min) 83 Blood Pressure Blood Pressure (100/60-150/90 mm Hg) 147/83 Lorazepam (Ativan) 0.5 mg IVP ONCE ONE PRN Reason: Protocol Stop: 03/22/17 19:08 Last Admin: 03/22/17 19:24 Dose: 0.5 mg IVP Administration Document 03/22/17 19:24 EQ (Rec: 03/22/17 19:24 EQ [id number]) Charges for Administration # of IVP Administrations 1 - Scribe Statement The provider has reviewed the documentation as recorded by the Scribe Liliana Rubio Provider Scribe Attestation: All medical record entries made by the Scribe were at my direction and personally dictated by me. I have reviewed the chart and agree that the record accurately reflects my personal performance of the history, physical exam, medical decision making, and the department course for this patient. I have also personally directed, reviewed, and agree with the discharge instructions and disposition. Disposition/Present on Arrival - Present on Arrival Any Indicators Present on Arrival: No History of DVT/PE: No History of Uncontrolled Diabetes: No Urinary Catheter: No History of Decub. Ulcer: No History Surgical Site Infection Following: None - Disposition Have Diagnosis and Disposition been Completed?: Yes Diagnosis: Hypertensive urgency, GERD (gastroesophageal reflux disease) Disposition: HOME/ ROUTINE Disposition Time: 19:56 Patient Plan: Discharge Patient Problems: Current Active Problems Problem Status Onset Abdominal pain Acute Abdominal pain Acute GERD (gastroesophageal reflux disease) Acute Hypertension Acute Hypertension Acute Hypertensive urgency Acute Condition: IMPROVED Discharge Instructions (ExitCare): Abdominal Pain (ED), Hypertensive Crisis (ED ) Prescriptions: Famotidine [Pepcid] 20 mg PO AC #20 tab Referrals: Kaden Edouard DO [Primary Care Provider] - Follow up with primary Forms: [employer] ([place])
[2017-03-22 18:13] LABS: BASO # 0.02 K/mm3 (0.0-2.0); BASO % 0.3 % (0.0-3.0); EOS % 0.2 % (1.5-5.0); GRAN # 4.52 (1.4-6.5); GRAN % 77.7 % (50.0-68.0); HEMATOCRIT 28.3 % (36.0-48.0); LYMPH # 0.9 (1.2-3.4); MEAN CELL VOLUME 73.9 fl (80.0-105.0); MEAN CORPUSCULAR HGB CONC 31.1 g/dl (31.0-37.0); MEAN PLATELET VOLUME 8.2 fl (7.0-11.0); MONO # 0.3 (0.1-0.6); MONO % 5.8 % (1.0-6.0); WHITE BLOOD COUNT 5.8 10^3/ul (4.5-11.0)
[2017-03-22 18:25] LABS: ALB/GLOB RATIO 1.2 (1.1-1.8); BILIRUBIN,TOTAL 0.4 mg/dL (0.2-1.3); CALCIUM 8.6 mg/dL (8.4-10.5); POTASSIUM 4.8 mmol/L (3.6-5.0); TOTAL PROTEIN 6.5 g/dL (5.8-8.3)
[2017-03-22 18:36] LABS: TROPONIN I 0.05 ng/mL
[2017-03-22] MEDS ORDERED: Atrop/Hyosc/Scopal/PB Elixir (120 ml) PO STA (19:00)
[2017-03-22] MEDS ORDERED: Alum-Mag Hydrox-Simethicone Susp (30 mL) PO STA (19:01)
--- NOTE | 2017-03-23 04:59 | CP.PCM.PN ---
Subjective - Date & Time of Evaluation Date of Evaluation: 03/23/17 Time of Evaluation: 04:58 - Subjective Subjective: requested me to change service to . Also, received a call from requesting same. Objective - Vital Signs/Intake and Output Vital Signs (last 24 hours): Temp Pulse Resp BP Pulse Ox 98 F 79 20 162/96 H 97 03/23/17 03:16 03/23/17 03:16 03/23/17 03:16 03/23/17 03:16 03/23/17 02:24 Intake and Output: 03/22/17 03/23/17 18:59 06:59 Intake Total 0 Balance 0 - Labs Labs: APTT 25.6 Seconds (23.7-30.8) 03/22/17 18:05
--- NOTE | 2017-03-23 07:48 | RAD ---
HISTORY: chest pain COMPARISON: 11/18/2016 FINDINGS: LUNGS: No active pulmonary disease. PLEURA: No significant pleural effusion identified, no pneumothorax apparent. CARDIOVASCULAR: There is severe cardiomegaly. The heart has increased in size since the previous study. This raises the possibility of a pericardial effusion. OSSEOUS STRUCTURES: No significant abnormalities. VISUALIZED UPPER ABDOMEN: Normal. OTHER FINDINGS: None. IMPRESSION: There is severe cardiomegaly. The heart has increased in size since the previous study. This raises the possibility of a pericardial effusion.
[2017-03-23 08:25] LABS: BASO # 0.02 K/mm3 (0.0-2.0); BASO % 0.6 % (0.0-3.0); EOS # 0.1 (0.0-0.7); EOS % 1.7 % (1.5-5.0); GRAN # 2.38 (1.4-6.5); GRAN % 66.2 % (50.0-68.0); HEMATOCRIT 28.3 % (36.0-48.0); LYMPH # 0.9 (1.2-3.4); LYMPH % 24.5 % (22.0-35.0); MEAN CELL VOLUME 73.9 fl (80.0-105.0); MEAN CORPUSCULAR HEMOGLOBIN 23.2 pg (25.0-35.0); MEAN CORPUSCULAR HGB CONC 31.4 g/dl (31.0-37.0); MEAN PLATELET VOLUME 8.1 fl (7.0-11.0); MONO # 0.3 (0.1-0.6); RED CELL DISTRIBUTION WIDTH 15.1 % (11.5-14.5); WHITE BLOOD COUNT 3.6 10^3/ul (4.5-11.0)
[2017-03-23 08:59] LABS: ALB/GLOB RATIO 1.2 (1.1-1.8); BILIRUBIN,TOTAL 0.4 mg/dL (0.2-1.3); CALCIUM 8.5 mg/dL (8.4-10.5); POTASSIUM 4.7 mmol/L (3.6-5.0); TOTAL PROTEIN 6.5 g/dL (5.8-8.3)
[2017-03-23] MEDS: Sodium Chloride 0.9% 1,000 ML IV SCH ×2 (09:07→19:01)
--- NOTE | 2017-03-23 09:34 | CT ---
PROCEDURE: CT Abdomen and Pelvis without intravenous contrast HISTORY: Abdominal pain COMPARISON: Ultrasound abdomen from 06/09/2016 TECHNIQUE: CT scan of the abdomen and pelvis was performed without administration of intravenous contrast. Oral contrast was not administered. Coronal and sagittal reformatted images were obtained. Radiation dose: Total exam DLP = 240.81 mGy-cm. This CT exam was performed using one or more of the following dose reduction techniques: Automated exposure control, adjustment of the mA and/or kV according to patient size, and/or use of iterative reconstruction technique. FINDINGS: LOWER THORAX: There are moderate bilateral pleural effusions, larger on the right with compressive atelectasis in the lower lobes. There is of moderate pericardial effusion. LIVER: The liver is normal in size. No gross lesion or ductal dilatation. GALLBLADDER AND BILE DUCTS: There are no calcified gallstones. PANCREAS: The pancreas is normal in size. No gross lesion or ductal dilatation. SPLEEN: The spleen is normal in size. ADRENALS: The adrenal glands are normal in size without discrete nodules. KIDNEYS AND URETERS: Both kidneys are normal in size without hydronephrosis or nephrolithiasis. A 4 mm high attenuation lesion in the posterior interpolar region of the left kidney likely represents a small hemorrhagic cyst. VASCULATURE: No aortic aneurysm. BOWEL: The small bowel loops are normal in caliber. The colon is unremarkable. APPENDIX: Normal appendix. PERITONEUM: No free fluid. No free air. LYMPH NODES: No enlarged lymph nodes. BLADDER: Partially decompressed. REPRODUCTIVE: There is a large calcified fibroid in the anterior and left lateral wall of the uterus resulting in mild mass effect on the caps urinary bladder on the left. BONES: No acute fracture. OTHER FINDINGS: None. IMPRESSION: 1. No acute abdominal or pelvic abnormality. 2. Large calcified fibroid in the anterior and left lateral wall of the uterus resulting in mild mass effect on the urinary bladder on the left. 3. Moderate bilateral pleural effusions, larger on the right. Moderate pericardial effusion.
[2017-03-23] MEDS: Metoprolol Succinate 50 mg XL Tab PO SCH (10:39)
--- NOTE | 2017-03-23 11:29 | HP ---
HISTORY OF PRESENT ILLNESS: I have seen her before in the hospital and she is comfortable in bed right now, I saw with the nurse present. She is pointing towards tummy and said it sort of bothers her in her language, sign language, but she is very comfortable at this time. No acute distress by looking at, she is smiling at me. PAST MEDICAL HISTORY: She has an interesting medical history, has hearing impaired, hypertension, high cholesterol, chronic kidney disease. She was in the [facility] for high blood pressure and she was sent to the emergency room for evaluation because it was very high. She had some blurry vision and headache and she is here in the hospital for abdominal pain and for hypertension. She had a CVA about 5 years ago with no deficits. She is deaf, mute, occasional blurred vision with high blood pressure. She has had transfusion in the past. She has chronic kidney disease. She had hysterectomy after second child was born. FAMILY HISTORY: Unknown. SOCIAL HISTORY: Never smoked. Social alcohol. No substance. ALLERGIES: NO KNOWN DRUG ALLERGIES. MEDICATIONS: She takes Protonix, Ecotrin, Toprol and Vantin. REVIEW OF SYSTEMS: There is a language barrier. At this time, she appears little bit comfortable in her bed, I am seeing her with a nurse and she agrees, smiling at me. PHYSICAL EXAMINATION VITAL SIGNS: She has a 98.2 temperature; 87 pulse; 18 respiratory rate; 181/84 blood pressure which is coming down, it went as low as 147/83 with 99% O2 sat. HEENT: Head is atraumatic and normocephalic. Throat is moist. Extraocular muscles intact. NECK: Supple. HEART: Regular rate. Normal S1 and S2. LUNGS: Decreased breath sounds, but clear to auscultation. ABDOMEN: Soft, nontender. Positive bowel sounds. No guarding, no rebound although apparently early in the day she had abdominal pain, but none now. EXTREMITIES: No edema. SKIN: Intact. NEUROLOGIC: She appears very comfortable at this time. She is smiling. LABORATORY DATA: She had lab tests. She has 139 sodium; potassium 4.7; BUN 55, creatinine 3.4, she does have chronic kidney disease, GFR is 14; sugar is 111; calcium is 8.5. Total bili is 0.4, AST is 41, ALT is 41, alk phos is 74. Total protein 6.5. White count 3.6, hemoglobin 8.9, hematocrit 28.3, platelets are 274. She had a chest x-ray which showed severe cardiomegaly, possible pericardial effusion. We will get a 2D echo. She had a CAT scan of the abdomen and pelvis which shows no acute abdominal or pelvic abnormality; large, calcified fibroid on the anterior left lateral wall of the uterus as well as the mass effect on the urinary bladder on the left; moderate bilateral pleural effusion, bordering right; moderate pericardial effusion. We will call cardiology, then call renal and GI and we are going to hopefully help her although apparently she looks better now than when she came in which is good. She had abdominal pain, hypertension, pericardial effusion. Kaden Edouard DO
[2017-03-23 15:13] LABS: URINE BILIRUBIN NEGATIVE (NEGATIVE); URINE BLOOD TRACE-INTACT (NEGATIVE); URINE GLUCOSE (UA) NEGATIVE (NEGATIVE); URINE KETONE NEGATIVE (NEGATIVE); URINE LEUKOCYTE ESTERASE NEGATIVE Leu/uL (NEGATIVE); URINE PROTEIN 100 mg/dL (<30 mg/dL); URINE UROBILINOGEN 0.2 E.U./dL (<1 E.U./dL)
[2017-03-23 15:15] LABS: URINE APPEARANCE CLEAR (CLEAR); URINE COLOR YELLOW (YELLOW)
[2017-03-23 15:28] LABS: URINE BACTERIA MANY (NEG)
[2017-03-23 15:30] LABS: URINE AMORPHOUS SEDIMENT FEW
--- NOTE | 2017-03-23 18:01 | CP.PCM.CON ---
<Jj Veras - Last Filed: 03/23/17 18:01> History of Present Illness - History of Present Illness History of Present Illness: PGY4 Initial GI Note Ana Bright is a 56F w/ hx of hearing impaired, hypertension, hyperlipidemia and CKD, sent into the emergency department from [facility] for high blood pressure. Her BP was managed via IV and PO Meds. Communicating with the pt has been a difficult task for care givers. Video sign language and text is not applicable due to her visual impairment. She does not use traditional sign language. She has been communicating via large letters on a clip board with staff and physicians. She states that she has abd pain. She states that it is generalized and started 2 years ago. She states that it is crampy. Her pain is intermittent. She states that she also has a hx of constipation, but was able to have a large BM today. She notes that she felt slightly better since her BM. Could not obtain any further information. Her CT scan showed a calcified fibroid and moderate amounts of stool. PMHx: hx of hearing impaired, hypertension, hyperlipidemia and CKD PSHx: could not obtain Family hx: could not obtain Endo Hx: could not obtain ROS: could not be completed Past Patient History - Infectious Disease Hx of Infectious Diseases: None - Past Social History Smoking Status: Never Smoked - CARDIAC Hx Hypertension: Yes - NEUROLOGICAL HX Cerebrovascular Accident: Yes (5 yrs ago.. no deficit) - HEENT Hx Deafness: Yes Other/Comment: mute.... also has blurry vision lately - ENDOCRINE/METABOLIC Hx Endocrine Disorders: No - HEMATOLOGICAL/ONCOLOGICAL Hx Blood Disorders: No - INTEGUMENTARY Hx Dermatological Problems: No - MUSCULOSKELETAL/RHEUMATOLOGICAL Hx Musculoskeletal Disorders: No Hx Falls: No - GASTROINTESTINAL Other/Comment: CKD - GENITOURINARY/GYNECOLOGICAL Hx Genitourinary Disorders: No - PSYCHIATRIC Hx Psychophysiologic Disorder: No - SURGICAL HISTORY Hx Hysterectomy: Yes (after 2nd child was born) - ANESTHESIA Hx Anesthesia Reactions: No Hx Malignant Hyperthermia: No Meds Home Medications: Home Medication List Medication Instructions Recorded Confirmed Type Famotidine [Pepcid] 20 mg PO AC #20 tab 03/22/17 Rx Allergies/Adverse Reactions: Allergies Allergy/AdvReac Type Severity Reaction Status Date / Time No Known Allergies Allergy Verified 06/09/16 07:39 - Medications Medications: Current Medications Acetaminophen (Tylenol 325mg Tab) 650 mg PO Q6H PRN PRN Reason: Fever >100.4 F Last Admin: 03/23/17 11:36 Dose: 650 mg Aspirin (Ecotrin) 81 mg PO DAILY [facility] Last Admin: 03/23/17 10:39 Dose: 81 mg Clonidine HCl (Catapres) 0.1 mg PO BID [facility] Last Admin: 03/23/17 17:13 Dose: 0.1 mg Famotidine (Pepcid) 20 mg IVP DAILY [facility] Last Admin: 03/23/17 10:40 Dose: 20 mg Sodium Chloride (Sodium Chloride 0.9%) 1,000 mls @ 100 mls/hr IV .Q10H [facility] Last Admin: 03/23/17 09:07 Dose: 100 mls/hr Metoprolol Succinate (Toprol Xl) 50 mg PO DAILY [facility] Last Admin: 03/23/17 10:39 Dose: 50 mg Minoxidil (Minoxidil) 10 mg PO DAILY [facility] Last Admin: 03/23/17 11:36 Dose: 10 mg Pantoprazole Sodium (Protonix Inj) 40 mg IVP DAILY@0600 [facility] Physical Exam - Constitutional Appears: Well - Head Exam Head Exam: ATRAUMATIC, NORMOCEPHALIC - Eye Exam Eye Exam: Normal appearance - ENT Exam ENT Exam: Mucous Membranes Moist, Normal Exam - Neck Exam Neck exam: Positive for: Normal Inspection - Cardiovascular Exam Cardiovascular Exam: REGULAR RHYTHM, +S1 - GI/Abdominal Exam GI & Abdominal Exam: Normal Bowel Sounds, Soft. absent: Distended, Guarding, Hypoactive Bowel Sounds, Rebound, Rigid, Tenderness - Extremities Exam Extremities exam: Positive for: normal inspection. Negative for: joint swelling , pedal edema - Neurological Exam Neurological exam: Alert, Oriented x3 - Psychiatric Exam Psychiatric exam: Normal Affect, Normal Mood - Skin Skin Exam: Dry, Intact, Normal Color, Warm Results - Vital Signs Recent Vital Signs: Last Vital Signs Temp 98.3 F 03/23/17 16:00 Pulse 71 03/23/17 17:13 Resp 18 03/23/17 16:00 BP 162/99 H 03/23/17 17:13 Pulse Ox 94 L 03/23/17 16:00 - Labs Result Diagrams: 03/23/17 05:15 03/23/17 05:15 Labs: Laboratory Results - last 24 hr 03/23/17 03/23/17 03/23/17 05:15 05:15 14:42 WBC 3.6 L D RBC 3.83 Hgb 8.9 L Hct 28.3 L MCV 73.9 L MCH 23.2 L MCHC 31.4 RDW 15.1 H Plt Count 274 MPV 8.1 Gran % 66.2 Lymph % (Auto) 24.5 Isabela % (Auto) 7.0 H Eos % (Auto) 1.7 Baso % (Auto) 0.6 Gran # 2.38 Lymph # 0.9 L Isabela # 0.3 Eos # 0.1 Baso # 0.02 Sodium 139 Potassium 4.7 Chloride 104 Carbon Dioxide 25 Anion Gap 15 BUN 55 H Creatinine 3.4 H Est GFR ( Amer) 17 Est GFR (Non-Af Amer) 14 Random Glucose 111 H Calcium 8.5 Total Bilirubin 0.4 AST 41 H ALT 41 Alkaline Phosphatase 74 Total Protein 6.5 Albumin 3.6 Globulin 3.0 Albumin/Globulin Ratio 1.2 Urine Color Yellow Urine Appearance Clear Urine pH 6.0 Ur Specific Winters 1.020 Urine Protein 100 H Urine Glucose (UA) Negative Urine Ketones Negative Urine Blood Trace-intact H Urine Nitrate Negative Urine Bilirubin Negative Urine Urobilinogen 0.2 Ur Leukocyte Esterase Negative Urine RBC 2 - 5 Urine WBC 1 - 3 Ur Epithelial Cells 4 - 5 Amorphous Sediment Few Urine Bacteria Many Hyaline Casts 0 - 2 Urine Other [facility] Assessment & Plan - Assessment and Plan (Free Text) Assessment: Aan Bright is a 56F w/ hx of hearing impaired, hypertension, hyperlipidemia and CKD who presented with hypertensive urgency. She states that she has acute on chronic abd pain, DDx: constipation, fibroids, dyspepsia, IBS 1. Abd pain 2. Constipation Plan: -start miralax daily -start PPI daily -encourage ambulation -unsure about colonscop hx, advise outpt colon screening if no prior exam -diet as tolerated -CT abd reviewed: constipation, calcified fibroid - will sign off -please consult if neede D/W Dr. hoover <Lenard Hoover - Last Filed: 03/23/17 18:31> Meds - Medications Medications: Current Medications Acetaminophen (Tylenol 325mg Tab) 650 mg PO Q6H PRN PRN Reason: Fever >100.4 F Last Admin: 03/23/17 11:36 Dose: 650 mg Aspirin (Ecotrin) 81 mg PO DAILY [facility] Last Admin: 03/23/17 10:39 Dose: 81 mg Clonidine HCl (Catapres) 0.1 mg PO BID [facility] Last Admin: 03/23/17 17:13 Dose: 0.1 mg Sodium Chloride (Sodium Chloride 0.9%) 1,000 mls @ 100 mls/hr IV .Q10H [facility] Last Admin: 03/23/17 09:07 Dose: 100 mls/hr Metoprolol Succinate (Toprol Xl) 50 mg PO DAILY [facility] Last Admin: 03/23/17 10:39 Dose: 50 mg Minoxidil (Minoxidil) 10 mg PO DAILY [facility] Last Admin: 03/23/17 11:36 Dose: 10 mg Pantoprazole Sodium (Protonix Inj) 40 mg IVP DAILY@0600 [facility] Pantoprazole Sodium (Protonix Ec Tab) 40 mg PO 0600 [facility] Polyethylene Glycol (Miralax) 17 gm PO DAILY [facility] Results - Vital Signs Recent Vital Signs: Last Vital Signs Temp 98.3 F 03/23/17 16:00 Pulse 71 03/23/17 17:13 Resp 18 03/23/17 16:00 BP 162/99 H 03/23/17 17:13 Pulse Ox 94 L 03/23/17 16:00 - Labs Result Diagrams: 03/23/17 05:15 03/23/17 05:15 Labs: Laboratory Results - last 24 hr 03/23/17 03/23/17 03/23/17 05:15 05:15 14:42 WBC 3.6 L D RBC 3.83 Hgb 8.9 L Hct 28.3 L MCV 73.9 L MCH 23.2 L MCHC 31.4 RDW 15.1 H Plt Count 274 MPV 8.1 Gran % 66.2 Lymph % (Auto) 24.5 Isabela % (Auto) 7.0 H Eos % (Auto) 1.7 Baso % (Auto) 0.6 Gran # 2.38 Lymph # 0.9 L Isabela # 0.3 Eos # 0.1 Baso # 0.02 Sodium 139 Potassium 4.7 Chloride 104 Carbon Dioxide 25 Anion Gap 15 BUN 55 H Creatinine 3.4 H Est GFR ( Amer) 17 Est GFR (Non-Af Amer) 14 Random Glucose 111 H Calcium 8.5 Total Bilirubin 0.4 AST 41 H ALT 41 Alkaline Phosphatase 74 Total Protein 6.5 Albumin 3.6 Globulin 3.0 Albumin/Globulin Ratio 1.2 Urine Color Yellow Urine Appearance Clear Urine pH 6.0 Ur Specific Winters 1.020 Urine Protein 100 H Urine Glucose (UA) Negative Urine Ketones Negative Urine Blood Trace-intact H Urine Nitrate Negative Urine Bilirubin Negative Urine Urobilinogen 0.2 Ur Leukocyte Esterase Negative Urine RBC 2 - 5 Urine WBC 1 - 3 Ur Epithelial Cells 4 - 5 Amorphous Sediment Few Urine Bacteria Many Hyaline Casts 0 - 2 Urine Other [facility] Attending/Attestation - Attestation I have personally seen and examined this patient.: Yes I have fully participated in the care of the patient.: Yes I have reviewed all pertinent clinical information: Yes Notes (Text): 03/23/17 18:29 56 year old female with h/o HTN, HLD, CKD, hearing/visual impaired with abdominal pain. 1. Abdominal pain Plan: -labs reviewed, notable for anemia and CKD -CT a/p reviewed, notable for fibroid uterus and constipation -eating dinner, tolerating diet without problem -would recommend PPI daily -would recommend miralax daily for constipation -outpatient egd/colonoscopy would be a good idea considering anemia if the patient is agreeable
--- NOTE | 2017-03-23 23:02 | CARD ---
APPROVED REPORT EXAM: Two-dimensional and M-mode echocardiogram with Doppler and color Doppler. INDICATION Pericardial Effusion 2D DIMENSIONS Left Atrium (2D)3.7 (1.6-4.0cm)IVSd2.0 (0.7-1.1cm) LVDd3.7 (3.9-5.9cm)PWd1.7 (0.7-1.1cm) LVDs2.7 (2.5-4.0cm)FS (%) 29.0 % LVEF (%)56.5 (>50%) M-Mode DIMENSIONS Aortic Root2.60 (2.2-3.7cm)Aortic Cusp Exc.1.60 (1.5-2.0cm) Aortic Valve AoV Peak Siwrloie524.0cm/Rell Peak GR.8mmHg Mitral Valve MV E Ztshoafh61.5cm/sMV A Dwxbdxkn39.1cm/sE/A ratio0.9 TDI E/Lateral E'0.0E/Medial E'0.0 Tricuspid Valve TR Peak Bxddkntd513qm/sRAP [id number] Peak Gr.58mmHg [id number] LEFT VENTRICLE The left ventricle cavity is small. There is severe concentric left ventricular hypertrophy.Speckled pattern The left ventricular function is normal. The left ventricular ejection fraction is within the normal range. There is normal LV segmental wall motion. Transmitral Doppler flow pattern is Grade I-abnormal relaxation pattern. RIGHT VENTRICLE The right ventricle is normal size. There is normal right ventricular wall thickness. The right ventricular systolic function is normal. ATRIA The left atrium is borderline dilated. The right atrium is moderately dilated. AORTIC VALVE The aortic valve is normal in structure. No aortic regurgitation is present. MITRAL VALVE The mitral valve is normal in structure. Mitral regurgitation is mild. TRICUSPID VALVE There is severe tricuspid regurgitation. There is severe pulmonary hypertension. GREAT VESSELS The aortic root is normal in size. The IVC collapses <50% with inspiration. PERICARDIAL EFFUSION There is a small-moderate circumferential pericardial effusion. There are no echocardiographic indications of cardiac tamponade. <Conclusion> The left ventricle cavity is small. There is severe concentric left ventricular hypertrophy.Speckled pattern The left ventricular function is normal. The left ventricular ejection fraction is within the normal range. There is normal LV segmental wall motion. Transmitral Doppler flow pattern is Grade I-abnormal relaxation pattern. Mitral regurgitation is mild. There is severe tricuspid regurgitation. There is severe pulmonary hypertension. There is a small-moderate circumferential pericardial effusion. There are no echocardiographic indications of cardiac tamponade.
--- NOTE | 2017-03-24 01:22 | CARD ---
APPROVED REPORT EKG Measurement Heart [id number] <Conclusion> Normal sinus rhythm Possible Left atrial enlargement Left ventricular hypertrophy T wave abnormality, consider lateral ischemia Prolonged QT Abnormal ECG
[2017-03-24 04:32] VITALS: RESP 20; O2SAT 98
[2017-03-24] MEDS ORDERED: Pantoprazole 40 mg EC Tab PO SCH (06:00)
[2017-03-24] MEDS ORDERED: Pantoprazole 40mg/100ml IVPB 40 MG/100 ML BAG IVPB SCH (06:00)
[2017-03-24 06:54] LABS: HEMATOCRIT 26.8 % (36.0-48.0); MEAN CELL VOLUME 74.4 fl (80.0-105.0); MEAN CORPUSCULAR HEMOGLOBIN 23.1 pg (25.0-35.0); MEAN PLATELET VOLUME 8.9 fl (7.0-11.0); RED CELL DISTRIBUTION WIDTH 15.3 % (11.5-14.5); WHITE BLOOD COUNT 3.6 10^3/ul (4.5-11.0)
[2017-03-24 07:25] LABS: ALB/GLOB RATIO 1.1 (1.1-1.8); BILIRUBIN,TOTAL 0.2 mg/dL (0.2-1.3); CALCIUM 7.9 mg/dL (8.4-10.5); POTASSIUM 4.9 mmol/L (3.6-5.0); TOTAL PROTEIN 5.9 g/dL (5.8-8.3)
--- NOTE | 2017-03-24 08:09 | CON ---
DATE: 03/23/2017 HISTORY: The patient is a 56-year-old woman who presented with accelerated hypertension. She was found to have a systolic pressure greater than 200. She was placed on medications. She denies chest pain. Denies shortness of breath. PAST MEDICAL HISTORY: Includes hearing impairment, hypertension, hypercholesterolemia and chronic kidney disease. Her past medical history also includes history of CVA 5 years ago. SOCIAL HISTORY: She does not smoke. REVIEW OF SYSTEMS: Negative for cardiac symptomatology. PHYSICAL EXAMINATION: VITAL SIGNS: Blood pressure 156/89, heart rate in the 80s. NECK: Negative JVD. LUNGS: Without rales. HEART: Reveal S1, S2. 2/6 systolic ejection murmur at the apex. EXTREMITIES: Without edema. EKG shows normal sinus rhythm with nonspecific ST-T changes. LABORATORY: BUN and creatinine is 55 over 3.4 with a hemoglobin of 8.9. IMPRESSION: 1. Accelerated hypertension which is now better. 2. Anemia. 3. Chronic renal failure. 4. Hearing impairment. 5. No coronary symptoms. Given these findings, I have ordered clonidine 0.1 to her regimen. In addition, an echocardiogram has been done, the results of pending. Serafin Jamil MD
[2017-03-24] MEDS ORDERED: Magnesium Hydroxide Susp 30 ml UD PO ONE (08:31)
[2017-03-24] MEDS ORDERED: cefTRIAXone 1 gm 1 GM/100 ML BAG IVPB STA (08:58)
[2017-03-24] MEDS: Metoprolol Succinate 50 mg XL Tab PO SCH (09:22)
[2017-03-24] MEDS: Sodium Chloride 0.9% 1,000 ML IV SCH (09:23)
[2017-03-24] MEDS ORDERED: POLYETHYLENE GLYCOL 3350 17 GM/Dose PACKET PO SCH (10:00)
[2017-03-24] MEDS ORDERED: Tmp-Smz 800 mg-160 mg DS Tab PO SCH (10:00)
[2017-03-24 10:11] VITALS: BP 145/90; PULSE 71; TEMP 98.6
--- NOTE | 2017-03-24 14:50 | PN ---
DATE: PROGRESS NOTE/DISCHARGE SUMMARY HISTORY OF PRESENT ILLNESS: I saw her resting in bed. She is still pointing at her tummy. The tummy is soft with positive bowel sounds. I saw the note from the GI. I felt there is constipation from the CAT scan and I gave her some medication MiraLax. I also gave her some milk of magnesia this morning. I discussed this also with Dr. Jamil, the hand winder that he is comfortable with sending her home on her medications, which is metoprolol, minoxidil, and clonidine for the blood pressure. I added Bactrim DS and one dose of Rocephin for an urinary tract infection, which she has and she can be discharged after lunch today. I am hoping she moves her bowels before she goes. PAST MEDICAL HISTORY: Abdominal pain, hypertension, constipation, and urinary tract infection. There was some pericardial effusion and Dr. Jamil is evaluating that. PHYSICAL EXAMINATION: VITAL SIGNS: 98.1 temp, 72 pulse, 146/92 blood pressure which is better, 20 respiratory rate, 98% O2 saturation on room air. HEENT: Head is atraumatic, normocephalic. HEART: Regular rate. LUNGS: Clear to auscultation. ABDOMEN: Soft with bowel sounds. No guarding, no rebound. BACK: No CVA tenderness. EXTREMITIES: With no edema. GENITOURINARY: She has a urinary tract infection and is started on antibiotics. LABORATORY DATA: She has 141 sodium, potassium is 4.9, BUN 55, creatinine 3.5. GFR is 13. Sugar is 92, calcium is 7.9, AST is 42, ALT is 46, total protein is 5.9. She has a 3.6 white count, 8.3 hemoglobin, 26.8 hematocrit with 294 platelets. ASSESSMENT AND PLAN: The sample preparation supervisor has scheduled an outpatient endoscopy with her. I am hoping to discharge her after lunch today and she was here for abdominal pain, hypertension, constipation, urinary tract infection, and pericardial effusion. Kaden Edouard DO
--- NOTE | 2017-03-25 08:27 | ED PDOC ---
Physical Exam Vital Signs Temp Pulse Resp BP Pulse Ox 03/23/17 02:24 78 16 97 03/23/17 02:19 76 16 139/88 97 03/23/17 00:01 98.0 F 77 17 136/78 99 03/22/17 19:25 83 147/83 03/22/17 18:52 89 18 143/83 99 03/22/17 18:00 83 18 147/94 H 98 03/22/17 16:51 98.2 F 87 18 181/84 H 97 Medical Decision Making ED Course and Treatment: 03/25/17 08:26 pt still c/o of abd pain , does notm feel safe going home will obs on ms, no response dr workman x 3 will admit to hospitalist service case d/w dr peralta - Lab Interpretations Lab Results: 03/22/17 18:05 03/22/17 18:05 Lab Results 03/22/17 18:05: Sodium 134, Potassium 4.8, Chloride 102, Carbon Dioxide 24, Anion Gap 13, BUN 54 H, Creatinine 3.1 H, Est GFR ( Amer) 19, Est GFR ( Non-Af Amer) 15, Random Glucose 98, Calcium 8.6, Total Bilirubin 0.4, AST 35, ALT 40, Alkaline Phosphatase 79, Lactate Dehydrogenase 745 H, Total Creatine Kinase 83, Troponin I 0.05, Total Protein 6.5, Albumin 3.5, Globulin 3.0, Albumin/Globulin Ratio 1.2 03/22/17 18:05: APTT 25.6 03/22/17 18:05: WBC 5.8, RBC 3.83, Hgb 8.8 L, Hct 28.3 L, MCV 73.9 L, MCH 23.0 L , MCHC 31.1, RDW 15.0 H, Plt Count 275, MPV 8.2, Gran % 77.7 H, Lymph % (Auto) 16.0 L, Burt % (Auto) 5.8, Eos % (Auto) 0.2 L, Baso % (Auto) 0.3, Gran # 4.52, Lymph # 0.9 L, Burt # 0.3, Eos # 0.0, Baso # 0.02 - RAD Interpretation Radiology Orders: 03/22/17 17:39 X-RAY [CHEST PORTABLE] [RAD] Stat - Medication Orders Current Medication Orders: Discontinued Medications Acetaminophen (Tylenol 325mg Tab) 650 mg PO Q6H PRN PRN Reason: Fever >100.4 F Last Admin: 03/23/17 11:36 Dose: 650 mg MAR Pain/Vitals Document 03/23/17 11:36 LA (Rec: 03/23/17 11:37 LA [facility] [id number]) Pain Reassessment Is This A Pain ReAssessment? No Sleep Is patient sleeping during reassessment? No Presence of Pain Presence of Pain Yes Pain Scale Used Pain Scale Used Numeric Location Pain Location Body Site Back Description Constant Intensity 8 Pain Behavior Rubbing Site Facial Grimacing Aggravating Factors None Alleviating Factors Medication Re-Assess: MAR Pain/Vitals Document 03/23/17 12:36 LA (Rec: 03/23/17 12:39 LA [facility] [id number]) Pain Reassessment Is This A Pain ReAssessment? Yes Sleep Is patient sleeping during reassessment? No Presence of Pain Presence of Pain Yes Pain Scale Used Pain Scale Used Numeric Location Pain Location Body Site Abdomen Description Cramping Intensity 2 Scale Used Numeric Pain Behavior Facial Grimacing Aggravating Factors None Alleviating Factors Medication Al Hydrox/Mg Hydrox/Simethicone (Maalox Plus 30 Ml) 30 ml PO STAT STA Stop: 03/22/17 19:02 Last Admin: 03/22/17 19:24 Dose: 30 ml Aspirin (Ecotrin) 81 mg PO DAILY [facility] Last Admin: 03/24/17 09:22 Dose: 81 mg Belladonna/Phenobarbital ( Elixir) 5 ml PO STAT STA Stop: 03/22/17 19:01 Last Admin: 03/22/17 19:23 Dose: 5 ml Clonidine HCl (Catapres) 0.1 mg PO BID [facility] Last Admin: 03/24/17 09:22 Dose: 0.1 mg Famotidine (Pepcid) 20 mg IVP DAILY [facility] Last Admin: 03/23/17 10:40 Dose: 20 mg IVP Administration Document 03/23/17 10:40 LA (Rec: 03/23/17 10:40 LA [facility] [id number]) Charges for Administration # of IVP Administrations 1 Sodium Chloride (Sodium Chloride 0.9%) 1,000 mls @ 100 mls/hr IV .Q10H [facility] Last Admin: 03/24/17 09:23 Dose: 100 mls/hr eMAR Start Stop Document 03/24/17 09:23 SD (Rec: 03/24/17 09:23 SD [facility] [id number]) Intravenous Solution Start Date 03/24/17 Start Time 09:23 Ceftriaxone Sodium (Rocephin 1 Gram Ivpb) 1 gm in 100 mls @ 200 mls/hr IVPB STAT STA PRN Reason: Protocol Stop: 03/24/17 09:27 Last Admin: 03/24/17 09:21 Dose: 200 mls/hr eMAR Start Stop Document 03/24/17 09:21 SD (Rec: 03/24/17 09:21 SD [facility] [id number]) Intravenous Solution Start Date 03/24/17 Start Time 09:21 End Date 03/24/17 End time 09:51 Total Infusion Time 30 Labetalol HCl (Trandate) 20 mg IV STAT STA Stop: 03/22/17 17:41 Last Admin: 03/22/17 19:25 Dose: Not Given Non-Admin Reason: BP Parameters Not Met [facility] Pulse and Blood Pressure Document 03/22/17 19:25 EQ (Rec: 03/22/17 19:26 EQ [facility] [id number]) Pulse Pulse Rate (60-90) 83 Blood Pressure Blood Pressure (100/60-150/90) 147/83 Lorazepam (Ativan) 0.5 mg IVP ONCE ONE PRN Reason: Protocol Stop: 03/22/17 19:08 Last Admin: 03/22/17 19:24 Dose: 0.5 mg IVP Administration Document 03/22/17 19:24 EQ (Rec: 03/22/17 19:24 EQ [facility] [id number]) Charges for Administration # of IVP Administrations 1 Magnesium Hydroxide (Milk Of Magnesia) 30 ml PO ONCE ONE Stop: 03/24/17 08:32 Last Admin: 03/24/17 09:24 Dose: 30 ml Metoprolol Succinate (Toprol Xl) 50 mg PO DAILY [facility] Last Admin: 03/24/17 09:22 Dose: 50 mg Minoxidil (Minoxidil) 10 mg PO DAILY [facility] Last Admin: 03/24/17 09:28 Dose: 10 mg Ondansetron HCl (Zofran Inj) 4 mg IVP STAT STA Stop: 03/22/17 23:16 Last Admin: 03/23/17 00:10 Dose: 4 mg IVP Administration Document 03/23/17 00:10 CAST (Rec: 03/23/17 00:[id number]) Charges for Administration # of IVP Administrations 1 Pantoprazole Sodium (Protonix Inj) 40 mg IVP ONCE STA Stop: 03/22/17 23:16 Last Admin: 03/23/17 00:10 Dose: 40 mg IVP Administration Document 03/23/17 00:10 [email or web address] (Rec: 03/23/17 00:[id number]) Charges for Administration # of IVP Administrations 1 Pantoprazole Sodium (Protonix Inj) 40 mg IVP DAILY@0600 [facility] Last Admin: 03/24/17 06:42 Dose: Pantoprazole Sodium (Protonix Ec Tab) 40 mg PO 0600 [facility] Last Admin: 03/24/17 06:38 Dose: 40 mg Polyethylene Glycol (Miralax) 17 gm PO DAILY [facility] Last Admin: 03/24/17 09:21 Dose: 17 gm Trimethoprim/Sulfamethoxazole (Bactrim Ds Tab) 1 tab PO BID [facility] PRN Reason: Protocol Last Admin: 03/24/17 09:22 Dose: 1 tab Disposition/Present on Arrival - Present on Arrival Any Indicators Present on Arrival: No History of DVT/PE: No History of Uncontrolled Diabetes: No Urinary Catheter: No History of Decub. Ulcer: No History Surgical Site Infection Following: None - Disposition Have Diagnosis and Disposition been Completed?: Yes Diagnosis: Hypertensive urgency, GERD (gastroesophageal reflux disease) Disposition: HOSPITALIZED Disposition Time: 02:00 Condition: GOOD
== END 2017-03-24 16:14 | disposition home or self-care (01) ==
LOC: ED 16:46 → ERH 03-23 00:37 → 5RNO 03-23 02:45
PROVIDERS: ADMIT Internal Medicine; ATTEND Family Medicine
DX: R10.9 Unspecified abdominal pain (principal); N39.0 Urinary tract infection, site not specified; I31.3 Pericardial effusion (noninflammatory); K59.00 Constipation, unspecified; I12.9 Hypertensive chronic kidney disease with stage 1 through stage 4 chronic kidney disease, or unspecified chronic kidney disease; N18.9 Chronic kidney disease, unspecified; D25.9 Leiomyoma of uterus, unspecified; D64.9 Anemia, unspecified; H91.3 Deaf nonspeaking, not elsewhere classified; E78.00 Pure hypercholesterolemia, unspecified; Z86.73 Personal history of transient ischemic attack (TIA), and cerebral infarction without residual deficits
CPT/HCPCS: 36415; 71010; 74176; 80053; 81001; 82550; 83615; 84484; 85025; 85027; 85730; 87086; 93005; 93306; 96374; 99285; C9113; G0378; J0696; J2060; J2405; J7040